=== PATIENT | female | born 1995 | race Hispanic/Latino ===

== ENCOUNTER 2023-12-18 17:31 | Emergency (ER) | payer SELFPAY ==
[2023-12-18 20:11] LABS: Absolute Eosinophils 0.1 K/uL (0-0.5); Absolute Monocytes 0.8 K/uL (0.1-1.3); Absolute Neutrophil 6.3 K/uL (1.8-8.0); Basophils % 0.3 % (0-1.3); Eosinophils % 1.4 % (0-4.4); Hematocrit 39.5 % (36.0-45.0); Hemoglobin 13.1 g/dL (12.0-15.0); Lymphocytes % 29.6 % (15.3-44.8); MCH 30.4 pg (27.0-35.0); MCHC 33.2 g/dL (32.0-36.0); MCV 91.6 fL (80-100); MPV 8.1 fL (7.6-11.3); Monocytes % 7.5 % (3.3-12.3); Neutrophils % 61.2 % (41.7-73.7); Nucleated Red Blood Cells % 0.2 % (0-0); Platelets 237 thou/uL (152-406); RBC Red Blood Cell Count 4.31 M/uL (3.86-4.86); Red Cell Distribution Width 15.4 % (12.1-15.2)
[2023-12-18 20:14] LABS: Sqamous Epithelial <5 /HPF (None Seen); Urine Bacteria None Seen /HPF (<20); Urine Bilirubin NEGATIVE (Negative); Urine Blood 3+ (Negative); Urine Clarity Turbid (Clear); Urine Color Yellow (Yellow); Urine Crystals Unidentified Few /HPF (None Seen); Urine Culture Reflex Order NOT NEEDED; Urine Glucose NEGATIVE (Negative); Urine Ketones NEGATIVE (Negative); Urine Microscopic Reflex YN ORDER UMIC; Urine Mucus Slight /HPF (None Seen); Urine Nitrite NEGATIVE (Negative); Urine Protein NEGATIVE (Negative); Urine RBC <5 /HPF (None Seen); Urine Urobilinogen Normal (Normal); Urine WBC <5 /HPF (<5)
[2023-12-18 20:37] LABS: Anion Gap 8.8 mEq/L (5.0-15.0); Potassium 3.8 mEq/L (3.5-5.1)
--- NOTE | 2023-12-18 20:47 | RAD REPORT ---
EXAMINATION: US FIRST TRIMESTER TRANSVAGINAL WITH DOPPLER CLINICAL INDICATION: with pelvic pain and vaginal bleeding TECHNIQUE: Real-time obstetrical ultrasonography of the maternal pelvis and first trimester was performed transabdominally.. The patient declined an endovaginal sonogram. COMPARISON: No prior exam. FINDINGS: The uterus measures 11 x 5 x 6 cm. It contains a 2 cm sac within the endometrium. pole not visu alized Small subchorionic bleed Ovaries appear normal in size and echotexture No significant free fluid IMPRESSION: Gestational sac within the endometrium without visualization of a pole. This may represent a no rmal intrauterine in which the pole was not seen secondary to a combination of early gestation and lack of endovaginal sonogram being performed. The estimated gestational age would be 6 weeks 6 days VALENTÍN 08/06/2024. Other considerations include an incomplete and less likely pseudogestational sac associated with an ectopic . This also should be correlated clinically and with beta hCG levels. Follow-up endovaginal sonogram in one week is recommended
--- NOTE | 2023-12-18 21:14 | ER ---
Nurse's Notes [facility] Name: Julissa Munoz Age: 28 yrs Sex: Female : 1995 Arrival Date: 12/18/2023 Time: 17:31 Bed 2 Private MD: Diagnosis: Threatened Presentation: 12/17 18:15 Coronavirus screen: Vaccine status: Patient reports receiving the 2nd dose of the covid tm6 vaccine. Ebola Screen: Patient negative for fever greater than or equal to 101.5 degrees Fahrenheit, and additional compatible Ebola Virus Disease symptoms Patient denies exposure to infectious person. Patient denies travel to an Ebola-affected area in the 21 days before illness onset. No symptoms or risks identified at this time. Risk Assessment: Do you want to hurt yourself or someone else? Patient reports no desire to harm self or others. 18:15 Acuity: ROWENA 3 tm6 18:15 Method Of Arrival: Ambulatory tm6 18:17 Chief complaint: Patient states: started bleeding this morning, has been a medium flow. tm6 Having cramps in suprapubic area and pain in right lower back. Is between 8-12 weeks . Initial Sepsis Screen: Does the patient meet any 2 criteria? No. Patient's initial sepsis screen is negative. Does the patient have a suspected source of infection? No. Patient's initial sepsis screen is negative. Onset of symptoms was December 18, 2023. Triage Assessment: 18:17 General: Appears in no apparent distress. Behavior is calm, cooperative. Pain: tm6 Complains of pain in right low back and suprapubic area Pain currently is 7 out of 10 on a pain scale. Quality of pain is described as crampy, Pain began this morning. EENT: No signs and/or symptoms were reported regarding the EENT system. Neuro: Level of Consciousness is awake, alert, obeys commands, Oriented to person, place, time, situation. Cardiovascular: Patient's skin is warm and dry. Respiratory: Airway is patent Respiratory effort is even, unlabored, Respiratory pattern is regular, symmetrical. GI: No signs and/or symptoms were reported involving the gastrointestinal system. Abdomen is flat, non-distended. : Reports pain in right in suprapubic area flank(s), vaginal bleeding that is moderate flow. Derm: No signs and/or symptoms reported regarding the dermatologic system. Musculoskeletal: Reports pain in right low back and suprapubic area. BOX ORDER PERSON: 18:17 LMP 09/14/2023, unknown tm6 Historical: - Allergies: 18:16 No Known Allergies; tm6 - PMHx: 18:16 None; tm6 - PSHx: 18:16 None; tm6 - Immunization history:: Client reports receiving the 2nd dose of the Covid vaccine. - Infectious Disease History:: Denies. - Social history:: Smoking status: Patient denies any tobacco usage or history of. Screenin:45 [facility] ED Fall Risk Assessment (Adult) History of falling in the last 3 months, ha1 including since admission No falls in past 3 months (0 pts) Confusion or Disorientation No (0 pts) Intoxicated or Sedated No (0 pts) Impaired Gait No (0 pts) Mobility Assist Device Used No (0 pt) Altered Elimination No (0 pt) Score/Fall Risk Level 0 - 2 = Low Risk Oriented to surroundings, Maintained a safe environment, Educated pt \T\ family on fall prevention, incl call for assistance when getting out of bed, Hourly rounding (assess needs \T\ fall precautionary measures) done. Abuse screen: Denies threats or abuse. Denies injuries from another. Nutritional screening: No deficits noted. Tuberculosis screening: No symptoms or risk factors identified. Assessment: 19:50 General: Appears comfortable, Behavior is calm, cooperative. Pain: Complains of pain in ha1 suprapubic area and right low back Pain does not radiate. Pain currently is 6 out of 10 on a pain scale. Quality of pain is described as crampy, Pain began gradually, Is continuous. Neuro: Level of Consciousness is awake, alert, obeys commands, Oriented to person, place, time, situation. Cardiovascular: Capillary refill < 3 seconds Patient's skin is warm and dry. Respiratory: Airway is patent Respiratory effort is even, unlabored, Respiratory pattern is regular, symmetrical. : Reports vaginal bleeding that is moderate flow, since this morning. Derm: Skin is pink, warm \T\ dry. Musculoskeletal: Circulation, motion, and sensation intact. Range of motion: intact in all extremities. 20:50 Reassessment: Patient and/or family updated on plan of care and expected duration. Pain ha1 level reassessed. Patient is alert, oriented x 3, equal unlabored respirations, skin warm/dry/pink. Vital Signs: 18:14 BP 123 / 73; Pulse 62; Resp 19; Temp 99.5(O); Pulse Ox 100% on R/A; Weight 79.38 kg; tm6 Height 5 ft. 6 in. ; Pain 7/10; 19:50 BP 117 / 80; Pulse 65; Resp 17 S; Pulse Ox 98% on R/A; ha1 20:30 BP 113 / 71; Pulse 66; Resp 17 S; Pulse Ox 100% on R/A; ha1 21:10 BP 112 / 68; Pulse 59; Resp 17 S; Temp 98; Pulse Ox 100% on R/A; ha1 18:14 Body Mass Index 28.12 (79.38 kg, 168 cm) tm6 18:14 Pain Scale: Adult tm6 ED Course: 17:35 Patient arrived in ED. im 17:56 Lupillo Rose PA is PHCP. cp 17:56 Lupillo Buchanan MD is Attending Physician. cp 18:16 Triage completed. tm6 18:17 Arm band placed on left wrist. tm6 19:30 Patient has correct armband on for positive identification. Bed in low position. Call ha1 light in reach. Side rails up X 1. 19:50 Inserted saline lock: 20 gauge in right antecubital area, using aseptic technique. ha1 Blood collected. Flushed with 10 mL NS. 19:53 US Transvaginal Ob In Process Unspecified. EDMS 20:01 Abo/rh Typing Sent. ha1 20:01 Basic Metabolic Panel Sent. ha1 20:01 CBC with Diff Sent. ha1 20:01 Test, Urine Sent. ha1 20:01 Quantitative Hcg Sent. ha1 20:01 Urinalysis w/ reflexes Sent. ha1 20:05 Provided Education on: PLAN OF CARE . ha1 20:08 Anjelica Snyder, RN is Primary Nurse. ha1 21:25 No provider procedures requiring assistance completed. IV discontinued, intact, ha1 bleeding controlled, No redness/swelling at site. Pressure dressing applied. Administered Medications: 21:22 Drug: Acetaminophen PO 1000 mg PO once Route: PO; dd2 21:22 Follow up: Response: Medication administered at discharge. dd2 21:25 Follow up: Response: No adverse reaction ha1 Medication: 20:05 VIS not applicable for this client. ha1 Outcome: 21:13 Discharge ordered by . cp 21:25 Discharged to home ambulatory, with family, ha1 : Condition: stable :25 Discharge instructions given to patient, family, Instructed on discharge instructions, follow up and referral plans. medication usage, Demonstrated understanding of instructions, follow-up care, medications, Prescriptions given X 1, :26 Patient left the ED. ha1 Signatures: Dispatcher [employer] EDMS Lupillo Rose PA PA cp Ayala, Heidy, RN RN ha1 Jennifer Merida Tawney, RN RN tm6 JENNA STOUT RN RN dd2
--- NOTE | 2023-12-18 21:14 | EDPHYS ---
Physician Documentation [facility] Name: Julissa Munoz Age: 28 yrs Sex: Female : 1995 Arrival Date: 12/18/2023 Time: 17:31 Bed 2 Private MD: ED Physician Lupillo Buchanan HPI: 12/17 18:30 This 28 yrs old Female presents to ER via Ambulatory with complaints of cp Vaginal Bleeding, + Preg <12wks. 18:30 The patient presents to the emergency department with abdominal pain, vaginal bleeding. cp The estimated gestational age is 8 weeks. 18:30 course: care: none, Leakage of Fluid: none appreciated, Ultrasound: cp the patient has not had an ultrasound. Associated signs and symptoms: Pertinent positives: abdominal pain, vaginal bleeding, Pertinent negatives: fever, vomiting. 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 - Infectious Disease History:: Denies. - Social history:: Smoking status: Patient denies any tobacco usage or history of. ROS: 18:35 Constitutional: Negative for body aches, chills, fever, poor PO intake, cp 18:35 Eyes: Negative for injury, pain, redness, and discharge, cp 18:35 Respiratory: Negative for cough, shortness of breath, wheezing, 18:35 Abdomen/GI: Positive for abdominal cramps, 18:35 Back: Positive for radiated pain, 18:35 : Positive for vaginal bleeding, Negative for urinary symptoms, 18:35 Neuro: Negative for weakness, 18:35 All other systems are negative, Exam: 18:40 Constitutional: The patient appears in no acute distress, alert, awake, non-toxic, well cp developed, well nourished, 18:40 Head/Face: Normocephalic, atraumatic. cp 18:40 Eyes: Periorbital structures: appear normal, Conjunctiva: normal, no exudate, no injection, Sclera: no appreciated abnormality, Lids and lashes: appear normal, bilaterally, 18:40 ENT: External ear(s): are unremarkable, Nose: is normal, Mouth: Lips: moist, Oral mucosa: pink and intact, moist, Posterior pharynx: is normal, airway is patent, no erythema, no exudate, 18:40 Chest/axilla: Inspection: normal, 18:40 Cardiovascular: Rate: normal, Rhythm: regular, 18:40 Respiratory: the patient does not display signs of respiratory distress, Respirations: normal, no use of accessory muscles, no retractions, labored breathing, is not present, Breath sounds: are clear throughout, no decreased breath sounds, no stridor, no wheezing, 18:40 Abdomen/GI: Inspection: abdomen appears normal, Palpation: soft, in all quadrants, mild abdominal tenderness, in the right lower quadrant and left lower quadrant, 18:40 Back: CVA tenderness, is absent, 18:40 Neuro: Orientation: to person, place \T\ time. Mentation: is normal, Motor: moves all fours, strength is normal, Vital Signs: 18:14 BP 123 / 73; Pulse 62; Resp 19; Temp 99.5(O); Pulse Ox 100% on R/A; Weight 79.38 kg; tm6 Height 5 ft. 6 in. ; Pain 7/10; 19:50 BP 117 / 80; Pulse 65; Resp 17 S; Pulse Ox 98% on R/A; ha1 20:30 BP 113 / 71; Pulse 66; Resp 17 S; Pulse Ox 100% on R/A; ha1 21:10 BP 112 / 68; Pulse 59; Resp 17 S; Temp 98; Pulse Ox 100% on R/A; ha1 18:14 Body Mass Index 28.12 (79.38 kg, 168 cm) tm6 18:14 Pain Scale: Adult tm6 MDM: 18:14 Patient medically screened. geraldine 21:12 Data reviewed: vital signs, nurses notes, lab test result(s), radiologic studies, cp ultrasound, and as a result, I will discharge patient. 21:12 Differential diagnosis: STD, ectopic . I considered the following discharge cp prescriptions or medication management in the emergency department Medications were administered in the Emergency Department. See MAR. Counseling: I had a detailed discussion with the patient and/or guardian regarding the historical points, exam findings, and any diagnostic results supporting the discharge/admit diagnosis. 12/17 18:26 Order name: Abo/rh Typing; Complete Time: 20:43 cp 12/17 18:26 Order name: Basic Metabolic Panel; Complete Time: 20:57 cp 12/17 20:43 Interpretation: Normal except: CL 108. cp 12/17 18:26 Order name: CBC with Diff; Complete Time: 20:43 cp 12/17 20:43 Interpretation: Normal except: RDW 15.4. cp 12/17 18:26 Order name: Test, Urine; Complete Time: 20:43 cp 12/17 18: Order name: Quantitative Hcg; Complete Time: 20:57 cp 12/17 20:57 Interpretation: Reviewed. cp 12/17 18: Order name: Urinalysis w/ reflexes; Complete Time: 20:43 cp 12/17 18: Order name: US Transvaginal Ob; Complete Time: 20:57 cp 12/17 20:58 Interpretation: Report reviewed. 12/17 18: Order name: IV Saline Lock; Complete Time: 20:01 cp 12/17 18: Order name: Labs collected and sent; Complete Time: 20:01 cp 12/17 18: Order name: NPO; Complete Time: 20:01 cp Administered Medications: 21:22 Drug: Acetaminophen PO 1000 mg PO once Route: PO; dd2 21:22 Follow up: Response: Medication administered at discharge. dd2 21:25 Follow up: Response: No adverse reaction ha1 Disposition Summary: 12/18/23 21:13 Discharge Ordered Notes: Location: Home cp Problem: new cp Symptoms: have improved cp Condition: Stable cp Diagnosis - Threatened cp Followup: cp - With: Private Physician - When: 48 Hours - Reason: Repeat Beta-HCG (48 Hours) Discharge Instructions: - Discharge Summary Sheet cp - Abdominal Pain During cp - Care cp - Threatened Miscarriage cp - Vaginal Bleeding During , First Trimester cp Forms: - Medication Reconciliation Form cp - Antibiotic Education cp - Prescription Opioid Use cp - Patient Portal Instructions cp - Leadership Thank You Letter cp Prescriptions: - [id number] - take 1 tablet ORAL route once daily; 60 tablet; Refills: 0, Product Selection cp Permitted Signatures: Dispatcher [employer] Lupillo Dillard MD MD cha Page, Corey, PA PA cp Masterson, Tawney, RN RN tm6 JENNA STOUT RN RN dd2 Anjelica Snyder RN ha1 Corrections: (The following items were deleted from the chart) 18: 18:27 ABO/RH TYPING+BB.LAB.BRZ ordered. EDMS EDMS 18:27 18:27 BASIC METABOLIC PANEL+C.LAB.BRZ ordered. EDMS EDMS 18:27 18:27 CBC+H.LAB.BRZ ordered. EDMS EDMS 18: 18:27 Test, Urine+UC.LAB.BRZ ordered. EDMS EDMS 18:27 18:27 QUANTITATIVE HCG+C.LAB.BRZ ordered. EDMS EDMS 18:27 18:27 Urinalysis+U.LAB.BRZ ordered. EDMS EDMS
[2023-12-18] MEDS ORDERED: ACETAMINOPHEN 500 MG TAB ONE (21:21)
[2023-12-18 21:29] VITALS: TEMP 99.5
[2023-12-18 21:31] VITALS: BP 117/80; O2SAT 98
== END 2023-12-18 21:26 | disposition home or self-care (01) ==
LOC: ER 17:31
DX: O20.0 Threatened abortion (principal)
CPT/HCPCS: 36415; 76817; 80048; 81001; 81025; 84702; 85025; 86900; 86901

== ENCOUNTER 2024-01-28 20:00 | Emergency (ER) | payer OTHER, SELFPAY ==
[2024-01-28 21:01] LABS: Absolute Eosinophils 0.2 K/uL (0-0.5); Absolute Lymphocytes (CBC) 3.1 K/uL (0.7-4.9); Absolute Monocytes 0.6 K/uL (0.1-1.3); Absolute Neutrophil 5.4 K/uL (1.8-8.0); Basophils % 0.4 % (0-1.3); Eosinophils % 2.5 % (0-4.4); Hematocrit 35.5 % (36.0-45.0); Hemoglobin 11.6 g/dL (12.0-15.0); Lymphocytes % 33.1 % (15.3-44.8); MCH 29.9 pg (27.0-35.0); MCHC 32.7 g/dL (32.0-36.0); MCV 91.4 fL (80-100); MPV 8.2 fL (7.6-11.3); Monocytes % 6.7 % (3.3-12.3); Neutrophils % 57.3 % (41.7-73.7); Platelets 250 thou/uL (152-406); RBC Red Blood Cell Count 3.89 M/uL (3.86-4.86); Red Cell Distribution Width 14.8 % (12.1-15.2)
[2024-01-28 21:17] LABS: Specific Gravity 1.018 (1.005-1.030); Urine Bacteria None Seen /HPF (<20); Urine Bilirubin NEGATIVE (Negative); Urine Blood 2+ (Negative); Urine Clarity Extremely Turbid (Clear); Urine Color Light-Yellow (Yellow); Urine Crystals Unidentified Few /HPF (None Seen); Urine Culture Reflex Order NOT NEEDED; Urine Glucose NEGATIVE (Negative); Urine Ketones NEGATIVE (Negative); Urine Micro Reflex YN NO BILL MICROSCOPIC; Urine Mucus Slight /HPF (None Seen); Urine Nitrite NEGATIVE (Negative); Urine Protein NEGATIVE (Negative); Urine RBC <5 /HPF (None Seen); Urine Urobilinogen Normal (Normal); Urine WBC <5 /HPF (<5); Urine pH 6.5 (5.0-7.0)
--- NOTE | 2024-01-28 21:22 | RAD REPORT ---
EXAMINATION: US 1St Trimest Single 1St Fetus CLINICAL INDICATION: Female 28 years old. Vaginal bleeding and preg COMPARISON: 12/18/2023. TECHNIQUE: Real-time ultrasound was performed through the pelvis. FINDINGS: There is a single living intrauterine . Small crescentic subchorionic hemorrhage measuring 7 mm in thickness. Both ovaries are visualized and appear unremarkable. There is no free fluid in the cul-de-sac. Measurements and Calculations: Femur length 0.8 cm, consistent with a sonographic age of 12 weeks, 3 days. FHR: 168 bpm IMPRESSION: 1. Single living intrauterine , with a composite sonographic age of 12 weeks, 3 days. 2. Small crescentic subchorionic hemorrhage measuring 7 mm in thickness. Close clinical follow-up, a nd consideration of follow-up ultrasound in 7-10 days are recommended.
[2024-01-28 21:30] LABS: Anion Gap 6.7 mEq/L (5.0-15.0); Potassium 3.7 mEq/L (3.5-5.1)
--- NOTE | 2024-01-28 22:08 | EDPHYS ---
Physician Documentation [facility] Name: Savi Avina Age: 28 yrs Sex: Female : 1995 Arrival Date: 01/28/2024 Time: 20:00 Bed 6 Private MD: ED Physician Chente Sue HPI: 01/27 20:48 This 28 yrs old Female presents to ER via Ambulatory with complaints of ec2 Vaginal Bleeding, + Preg <12wks. 20:48 Patient is approximately 12 weeks , arrives today for vaginal bleeding. Reports ec2 that she is having vaginal bleeding that started earlier today. Patient reports otherwise normal , this is her second . No previous complications. . DIETITIAN: 20:22 Verified cm10 Historical: - Allergies: 20:21 No Known Allergies; cm10 - Home Meds: 20:21 None [Active]; cm10 - PMHx: 20:21 None; cm10 - PSHx: 20:21 Appendectomy; section; cm10 - Immunization history:: Adult Immunizations up to date. - Infectious Disease History:: Denies. - Social history:: Smoking status: Patient denies any tobacco usage or history of. ROS: 20:48 Constitutional: as per hpi ec2 Exam: 20:48 Constitutional: GEN: NAD Head: atraumatic Eyes: EOMI Ears: External ears are ec2 normal. CV: regular rate LUNGS: no respiratory distress ABD: non-distended SKIN: no evidence of rashes MSK: no evidence of trauma Vital Signs: 20:19 BP 114 / 72; Pulse 81; Resp 15; Temp 99.1(O); Pulse Ox 100% on R/A; Weight 79.83 kg; cm10 Height 5 ft. 8 in. ; Pain 5/10; 22:00 BP 100 / 56; Pulse 75; Resp 16; Pulse Ox 100% ; cm10 20:19 Body Mass Index 26.76 (79.83 kg, 172.72 cm) cm10 20:19 Pain Scale: Adult cm10 MDM: 20:18 Medical Screening Exam initiated ec2 20:48 Data reviewed: vital signs. ED course: Patient arrives today for evaluation of vaginal ec2 bleeding in setting of . Differential includes processes such as miscarriage, normal , subchorionic hemorrhage. 21:28 ED course: Ultrasound shows subchorionic hemorrhage with live IUP.. ec2 22:06 ED course: Patient is OPos for blood type on previous lab work. Will discharge home ec2 have her follow-up with obstetrics. 01/27 20:09 Order name: HCG-Quantitative; Complete Time: 21:38 ec2 01/27 20:09 Order name: Abo/rh Typing ec2 01/27 20:09 Order name: CBC with Diff; Complete Time: 21:09 ec2 01/27 20:09 Order name: BMP; Complete Time: 21:38 ec2 01/27 20:18 Order name: UAM; Complete Time: 21:27 ec2 01/27 20:33 Order name: 1St Trimest Single 1St Fetus; Complete Time: 21:27 EDMS Administered Medications: No medications were administered Disposition Summary: 01/28/24 22:07 Discharge Ordered Notes: Location: Home ec2 Condition: Stable ec2 Diagnosis - Subchorionic Hemorrhage ec2 Followup: ec2 - With: Private Physician - When: - Reason: Re-evaluation by your physician Discharge Instructions: - Discharge Summary Sheet ec2 - Subchorionic Hematoma ec2 Forms: - Medication Reconciliation Form ec2 - Antibiotic Education ec2 - Prescription Opioid Use ec2 - Patient Portal Instructions ec2 - Leadership Thank You Letter ec2 Signatures: Dispatcher [employer] Kiki Toribio RN RN cm10 Chente Sue MD MD ec2 Corrections: (The following items were deleted from the chart) 20:33 20:09 Transvaginal Ob+US.RAD.BRZ ordered. EVA EDMS
--- NOTE | 2024-01-28 22:08 | ER ---
Nurse's Notes [facility] Name: Savi Avina Age: 28 yrs Sex: Female : 1995 Arrival Date: 01/28/2024 Time: 20:00 Bed 6 Private MD: Diagnosis: Subchorionic Hemorrhage Presentation: 01/27 20:19 Chief complaint: Patient states: Vaginal bleeding onset today at 1700. Pt states that cm10 the blood is dark in color. Pt also reports pelvic pain and pain with urination. Pt is 12weeks . . Coronavirus screen: Client denies travel out of the [place] in the last 14 days. Ebola Screen: Patient denies travel to an Ebola-affected area in the 21 days before illness onset. No symptoms or risks identified at this time. Initial Sepsis Screen: Does the patient meet any 2 criteria? No. Patient's initial sepsis screen is negative. Does the patient have a suspected source of infection? No. Patient's initial sepsis screen is negative. Risk Assessment: Do you want to hurt yourself or someone else? Patient reports no desire to harm self or others. Onset of symptoms was January 28, 2024. 20:19 Method Of Arrival: Ambulatory cm10 20:19 Acuity: ROWENA 3 cm10 Triage Assessment: 20:21 General: Appears in no apparent distress. comfortable, Behavior is calm, cooperative. cm10 Pain: Complains of pain in pelvis Pain does not radiate. Pain currently is 5 out of 10 on a pain scale. Neuro: No deficits noted. Level of Consciousness is awake, alert, obeys commands, Oriented to person, place, time, situation, Appropriate for age. Respiratory: No deficits noted. Airway is patent Respiratory effort is even, unlabored, Respiratory pattern is regular, symmetrical. : Reports pain with urination, vaginal bleeding that is brown. TURKEY PICKER: 20:22 Verified cm10 Historical: - Allergies: 20:21 No Known Allergies; cm10 - Home Meds: 20:21 None [Active]; cm10 - PMHx: 20:21 None; cm10 - PSHx: 20:21 Appendectomy; section; cm10 - Immunization history:: Adult Immunizations up to date. - Infectious Disease History:: Denies. - Social history:: Smoking status: Patient denies any tobacco usage or history of. Screenin:26 [facility] ED Fall Risk Assessment (Adult) History of falling in the last 3 months, cm10 including since admission No falls in past 3 months (0 pts) Confusion or Disorientation No (0 pts) Intoxicated or Sedated No (0 pts) Impaired Gait No (0 pts) Mobility Assist Device Used No (0 pt) Altered Elimination No (0 pt) Score/Fall Risk Level 0 - 2 = Low Risk Oriented to surroundings, Maintained a safe environment, Hourly rounding (assess needs \T\ fall precautionary measures) done. Abuse screen: Denies threats or abuse. Denies injuries from another. Nutritional screening: No deficits noted. Tuberculosis screening: No symptoms or risk factors identified. Assessment: 22:09 Reassessment: Patient appears in no apparent distress at this time. No changes from cm10 previously documented assessment. Patient and/or family updated on plan of care and expected duration. Pain level reassessed. Patient is alert, oriented x 3, equal unlabored respirations, skin warm/dry/pink. Vital Signs: 20:19 BP 114 / 72; Pulse 81; Resp 15; Temp 99.1(O); Pulse Ox 100% on R/A; Weight 79.83 kg; cm10 Height 5 ft. 8 in. ; Pain 5/10; 22:00 BP 100 / 56; Pulse 75; Resp 16; Pulse Ox 100% ; cm10 20:19 Body Mass Index 26.76 (79.83 kg, 172.72 cm) cm10 20:19 Pain Scale: Adult cm10 ED Course: 20:03 Patient arrived in ED. ra3 20:08 Chente Sue MD is Attending Physician. ec2 20:09 Kiki Crow, ESME is Primary Nurse. cm10 20:21 Triage completed. cm10 20:21 Arm band placed on Patient placed in an exam room, on a stretcher, on pulse oximetry. cm10 20:25 Ultrasound at bedside. cm10 20:26 Patient has correct armband on for positive identification. Placed in gown. Bed in low cm10 position. Call light in reach. Side rails up X2. Provided Education on: ER process and procedures.. Pulse ox on. NIBP on. 20:33 1St Trimest Single 1St Fetus In Process Unspecified. EDMS 20:48 UAM Sent. cm10 20:49 BMP Sent. cm10 20:49 CBC with Diff Sent. cm10 20:49 Abo/rh Typing Sent. cm10 20:49 HCG-Quantitative Sent. cm10 20:49 Initial lab(s) drawn, by mo, sent to lab. Urine collected: clean catch specimen. cm10 Inserted saline lock: 20 gauge in right antecubital area, using aseptic technique. Blood collected. Flushed with 10 mL NS. 22:14 No provider procedures requiring assistance completed. IV discontinued, intact, cm10 bleeding controlled, No redness/swelling at site. Pressure dressing applied. Administered Medications: No medications were administered Medication: 20:26 VIS not applicable for this client. cm10 Outcome: 22:07 Discharge ordered by . ec2 22:14 Discharged to home ambulatory, cm10 22:14 Condition: good 22:14 Discharge instructions given to patient, Instructed on discharge instructions, follow up and referral plans. Demonstrated understanding of instructions, follow-up care, 22:15 Patient left the ED. cm10 Signatures: Dispatcher [employer] Kiki Toribio RN RN 10 Chente Sue MD MD ec2 [place] 3
[2024-01-28 22:40] VITALS: TEMP 99.1; O2SAT 100
[2024-01-28 22:41] VITALS: BP 100/56
== END 2024-01-28 22:15 | disposition home or self-care (01) ==
LOC: ER 20:00
DX: O20.8 Other hemorrhage in early pregnancy (principal); Z3A.12 12 weeks gestation of pregnancy
CPT/HCPCS: 36415; 76801; 80048; 81001; 84702; 85025; 86900; 86901; 99284